=== PATIENT | female | born 1965 | race Caucasian/White ===

== ENCOUNTER 2018-07-31 07:57 | Emergency (ER) | payer OTHER ==
--- NOTE | 2018-07-31 08:31 | EDM.PDOC ---
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 and shahid felt sharp prick to her right thumb pulled off her gloves few seconds later noticed bleeding from her thumb went washed it off soap water and then went to [employer] office Time Seen by Provider: 07/31/18 08:20 Source of Information: Reports: Patient History Limitations: Reports: No Limitations - History of Present Illness Onset: Today Onset Time: 07:30 Duration: Hour(s): Associated Symptoms: Reports: No Other Symptoms - Related Data Allergies Allergy/AdvReac Type Severity Reaction Status Date / Time Penicillins Allergy Cannot Verified 07/31/18 08:13 Remember ED ROS GENERAL - Review of Systems Review Of Systems: See Below (needles apper to be diabetic insulin pump cartriage hollow needle) Constitutional: Denies: Fever, Chills Musculoskeletal: Denies: No Symptoms Skin: Reports: Wound Neurological: Denies: No Symptoms Psychiatric: Reports: No Symptoms Hematologic/Lymphatic: Reports: No Symptoms Immunologic: Reports: No Symptoms ED EXAM, GENERAL - Physical Exam Exam: See Below Exam Limited By: No Limitations General Appearance: Alert, WD/WN, Anxious Neurological: Alert, Oriented, CN II-XII Intact, Normal Cognition Psychiatric: Normal Affect, Normal Mood Skin Exam: Warm, Dry, Intact, Normal Color, No Rash, Other (exam to right thumb FROM Flex ext adduction abduction oppistion mild 1-2mm superfical pw ant lat surface no active bleeding no eccymosisi noted ) Course - Vital Signs Last Recorded V/S: Last Vital Signs Temp 37.0 C 07/31/18 08:03 Pulse 75 07/31/18 08:03 Resp 18 07/31/18 08:03 BP 178/75 H 07/31/18 08:03 Pulse Ox 99 07/31/18 08:03 - Orders/Labs/Meds Labs: Laboratory Tests 07/31/18 07/31/18 07/31/18 Range/Units 09:04 09:04 09:04 WBC 3.3 L (4.0-10.0) x10^3/uL RBC 4.43 (4.00-5.50) x10^6/uL Hgb 13.5 (12.0-16.0) g/dL Hct 39.1 (33.0-47.0) % MCV 88.3 (78.0-93.0) fL MCH 30.5 (26.0-32.0) pg MCHC 34.5 (32.0-36.0) g/dL RDW Coeff of Barney 11.9 (10.0-15.0) % Plt Count 326 (130-400) x10^3/uL Hep Bs Ab Post Vacc See scanned report HIV (1&2) Ag & Ab Refer See scanned report - Re-Assessments/Exams Free Text/Narrative Re-Assessment/Exam: 07/31/18 08:51 spoke with ID at [facility] Dr Messina start PEP protocol for 30 days and can have pt follow up for post blood work pt ok with DX TX gives verbal understanding 07/31/18 09:31 Truvada 200/300mg 1po q day x 7days pt will follow up pcp prior to rx RUNS OUT DUE TO PHARMACY HAVING LIMITED SUPPLY Isentress 400mg 1po bid x 7days pt will follow up pcp prior to rx RUNS OUT DUE TO PHARMACY HAVING LIMITED SUPPLY source was tested from student , labs were sent HIV HEP B,C 07/31/18 10:18 Departure - Departure Time of Disposition: 08:40 Disposition: Home, Self-Care 01 Condition: Good Clinical Impression: Needle stick injury of finger of right hand - Discharge Information Instructions: Body Fluid Exposure Information, Needlestick Injury, [id number] Referrals: PCP,None [Primary Care Provider] - Forms: ED Department Discharge Additional Instructions: follow up with primary provider in 3-5 days take all meds as directed pt gives verbal understanding - Problem List & Annotations (1) Needle stick injury of finger of right hand SNOMED Code(s): 372666214 Code(s): S61.239A - PNCTR W/O FB OF UNSP FINGER W/O DAMAGE TO NAIL, INIT; W27.3XXA - CONTACT WITH NEEDLE (SEWING), INITIAL ENCOUNTER Status: Acute
== END 2018-07-31 10:58 | disposition home or self-care (01) ==
LOC: VM.ED 07:57
DX: S61.031A Puncture wound without foreign body of right thumb without damage to nail, initial encounter (principal); W46.0XXA Contact with hypodermic needle, initial encounter; Z88.0 Allergy status to penicillin
CPT/HCPCS: 36415; 85027; 86706; 87389; 99283

== ENCOUNTER 2024-03-21 11:17 | Emergency (ER) | payer OTHER ==
[2024-03-21] MEDS: Acetaminophen 500 MG Tab PO ONE (11:53)
== END 2024-03-21 13:12 | disposition home or self-care (01) ==
LOC: VM.ED 11:17
DX: U07.1 COVID-19 (principal); Z88.0 Allergy status to penicillin; Z79.82 Long term (current) use of aspirin; Z86.16 Personal history of COVID-19
CPT/HCPCS: 87428-QW; 99284; A9270-GY